=== PATIENT | male | born 1970 | race Caucasian/White ===

== ENCOUNTER → 2021-11-03 | Outpatient (CLI) | payer MEDICARE, MEDICAID ==
--- NOTE | 2021-11-03 10:26 | REP ---
INDICATION: ABNORMAL LEVELS OF OTHER SERUM ENZYMES TECHNIQUE: Real time B-mode guadalupe scale and color Doppler ultrasound examination using curved array transducer. FINDINGS: Liver demonstrates mild coarsened echotexture raising the possibility of hepatocellular disease. No focal hepatic lesions are identified. Doppler interrogation of the hepatic vasculature including splenic vein at the hilum and hepatic artery demonstrate normal flow direction, wave patterns and velocities. Main portal vein measures 8.5 mm diameter. Main portal vein (PSV): 27.8 cm/sec Spleen is enlarged and measures 12.4 x 11.8 x 5.3 cm (splenic index 776). No focal splenic lesions are identified. The pancreas and gallbladder/biliary system are normal. No biliary ductal dilatation is appreciated and the common bile duct measures 4.2 mm in diameter. The bilateral kidneys are normal in reniform shape without hydronephrosis or obvious abnormality. Right kidney measures 11.4 x 5.1 x 4.4 cm. Left kidney measures 12.3 x 5.0 x 5.5 cm. Abdominal aorta measures 2.4 cm maximal diameter and appears normal. No ascites noted. IMPRESSION: 1. Coarsened hepatic echotexture raise the possibility of underlying hepatocellular disease without focal hepatic lesion identified. 2. Hepatic vasculature is normal. 3. Splenomegaly noted. <Electronically signed by Derian Rocha > 11/03/21 1029
== END ==
LOC: M RAD 09:18
PROVIDERS: ATTEND Internal Medicine Gastroenterology
DX: R16.1 Splenomegaly, not elsewhere classified (principal); R74.8 Abnormal levels of other serum enzymes

== ENCOUNTER → 2021-12-22 | Outpatient (CLI) | payer MEDICARE, MEDICAID ==
[~2021-12-22] MED LIST: BUSP10TA PO; CARV25TA PO; CLON1TAB17 PO; CLOZ100T2 PO; FLUD0.1T PO; OXCA600T8 PO; SYNT25TA PO; VENL75CA2 PO; VYTO10TA22 PO
== END ==
LOC: M LABSMTC 11:05
PROVIDERS: ATTEND Anesthesiology
DX: Z01.812 Encounter for preprocedural laboratory examination (principal); Z20.822 Contact with and (suspected) exposure to COVID-19

== ENCOUNTER 2021-12-27 10:01 | Day surgery (SDC) | payer MEDICARE, MEDICAID ==
[~2021-12-27] VITALS: Ht 182.9 cm; Wt 107.0 kg
[~2021-12-27 10:01] MED LIST changes: +NS 1,000 ML IV ONE
[2021-12-27] MEDS ORDERED: LIDOCAINE 2% MDV 20ML VIAL As Ordered ONE (12:14)
[2021-12-27] MEDS ORDERED: MIDAZOLAM INJ 2MG/2ML VIAL (J2250 PER 1MG) As Ordered ONE (12:14)
[2021-12-27] MEDS ORDERED: propofoL 200 MG/20 ML VIAL As Ordered ONE (12:14)
[2021-12-27 12:44] VITALS: BP 156/81
== END 2021-12-27 13:00 | disposition home or self-care (01) ==
LOC: M OPP 10:01
PROVIDERS: ATTEND Internal Medicine Gastroenterology
DX: K63.5 Polyp of colon (principal); Q43.8 Other specified congenital malformations of intestine; R93.3 Abnormal findings on diagnostic imaging of other parts of digestive tract; Z79.899 Other long term (current) drug therapy; Z88.0 Allergy status to penicillin
CPT/HCPCS: 45381; 45385; 88305; J2250

== ENCOUNTER 2024-04-25 11:02 | Day surgery (SDC) | payer MEDICARE, MEDICAID ==
[~2024-04-25] VITALS: Ht 180.3 cm; Wt 110.1 kg
[~2024-04-25 11:02] MED LIST changes: -CLOZ100T2 PO; +CLOZ100T5 PO; +EZET-18 PO; -NS 1,000 ML IV ONE; +SYNT50TA PO; -VYTO10TA22 PO; +propofoL 200 MG/20 ML VIAL As Ordered ONE
[2024-04-25] MEDS: NS 1,000 ML IV ONE (11:42)
[2024-04-25] MEDS ORDERED: LABETALOL 100MG/20ML VIAL As Ordered ONE (12:40)
[2024-04-25 13:10] VITALS: TEMP 97.1
[2024-04-25 13:32] VITALS: BP 159/108; O2SAT 95
== END 2024-04-25 13:50 | disposition home or self-care (01) ==
LOC: M OPP 11:02
PROVIDERS: ATTEND Internal Medicine Gastroenterology
DX: Z12.11 Encounter for screening for malignant neoplasm of colon (principal); Z86.010 Personal history of colon polyps; K64.8 Other hemorrhoids; K57.30 Diverticulosis of large intestine without perforation or abscess without bleeding; E03.9 Hypothyroidism, unspecified; I10 Essential (primary) hypertension; Z79.890 Hormone replacement therapy; Z79.899 Other long term (current) drug therapy
CPT/HCPCS: G0105; J1920